=== PATIENT | female | born 1960 | race Caucasian/White ===

== ENCOUNTER → 2016-10-05 | Outpatient (CLI) | payer OTHER ==
--- NOTE | 2016-10-06 01:42 | REP ---
Clinical: Lower back pain. Technique: AP, lateral, bilateral oblique and coned-down views of the lumbosacral spine. Findings: Mild to moderate degenerative changes at the L4-5 and L5-S1 levels including endplate sclerosis with subtle anterior spurring and associated disc space narrowing. Remainder examination appears relatively normal for age. Alignment and lordosis maintained. No acute fracture / compression injury or subluxation. No obvious spondylolysis or spondylolisthesis. Impression: Mild to moderate degenerative changes primarily involving the L4-5 and L5-S1 levels. Signed by José Luis Chappell MD 10/06/2016 01:34 A
--- NOTE | 2016-10-06 01:47 | REP ---
Clinical: Knee pain. Technique: AP, lateral, bilateral oblique and sunrise views to the left knee. Findings: Mild tricompartmental degenerative changes include increased sclerosis to the tibial plateau with medial joint space narrowing as well as subtle spurring. Lateral and sunrise views of the patella demonstrate inferior osteophyte formation with subchondral heterogeneity and patellofemoral joint space narrowing. There is no evidence for acute fracture / dislocation or effusion. Unfused tibial tuberosity should not be confused with fracture. Impression: Mild tricompartmental osteoarthritic degenerative changes. Signed by José Luis Chappell MD 10/06/2016 01:38 A
== END ==
LOC: M WUC 16:13
PROVIDERS: ATTEND Physician Assistant
DX: M54.5 Low back pain (principal); M25.562 Pain in left knee

== ENCOUNTER → 2021-07-04 | Outpatient (REF) | payer BC ==
[~2021-07-04] MED LIST: CIPR500T39; CLIN150C17 PO
== END ==
LOC: M LAB REF 18:19
PROVIDERS: ATTEND Physician Assistant
DX: S91.332A Puncture wound without foreign body, left foot, initial encounter (principal)

== ENCOUNTER → 2021-07-05 | Outpatient (CLI) | payer BC ==
--- NOTE | 2021-07-05 15:15 | REP ---
INDICATION: PUNCTURE WOUND W/O FOREIGN BODY, CELLULITIS. COMPARISON: None. TECHNIQUE: Four views FINDINGS: The joint spaces are symmetric and relatively well maintained. There is no evidence of acute fracture or destructive osseous lesion. There is no evidence of a radiopaque foreign body. IMPRESSION: Within normal limits. No evidence of an acute osseous abnormality or radiopaque foreign body. <Electronically signed by Tyson Brewster > 07/05/21 1995
== END ==
LOC: M WUC 13:55
PROVIDERS: ATTEND Physician Assistant
DX: S91.332A Puncture wound without foreign body, left foot, initial encounter (principal); X58.XXXA Exposure to other specified factors, initial encounter; Y92.89 Other specified places as the place of occurrence of the external cause; Y93.89 Activity, other specified; Y99.8 Other external cause status; L03.116 Cellulitis of left lower limb

== ENCOUNTER 2021-07-06 08:44 | Emergency (ER) | payer BC ==
[~2021-07-06] VITALS: Ht 160 cm; Wt 89.9 kg
[2021-07-06] MEDS ORDERED: CIPR500T39 (08:57)
--- OUTSIDE RECORDS SUMMARY | 2021-07-06 08:57 | CCD | Continuity of Care Document ---
Author Author Lynn RAPP CA Organization Unknown Address [address] [place] [address] [place] [address] Phone [phone] Care Team Providers Care Manual Training Teacher Name Role Phone No PCP AUTM Unavailable Problems Description No Information Available Social History Type Date Description Comments Sex Unknown Tobacco Use Start: Unknown Never Smoked Cigarettes ETOH Use Rarely consumes alcohol Tobacco Use Start: Unknown Patient has never smoked Smoking Status Reviewed: 07/03/21 Patient has never smoked Allergies and adverse reactions Description No Known Drug Allergies Medications Active Medications SIG Qnty Indications Ordering Provide r Date Cipro 500mg Tablets 1 tab by mouth every 12 hours for 7 days 14tabs Wayne Cavanaugh JR., M.D. 07/03/2021 History Medications No Active Medications Unknown - 07/03/2021 Cephalexin 500mg Tablets 1 tab by mouth q6 hours for 7 days 28tabs L03.116 Wayne Cavanaugh JR., M.D. - 07/03/2021 Immunizations CPT Code Status Date Vaccine Reaction Lot # [id number] Given 03/19/2020 Tdap/Tetanus, Di phth Toxoids/Acellular Pertussis Vac 7Yr Or > Pt tolerated well, no reaction. [id number] 07476 Given 04/08/2019 PPD- TB Intradermal Test 0 m m in duration test is NEG, read by Jay GALVEZ [id number] 27685 Given 04/26/2018 PPD- TB Intradermal Test Res ults of PPD read on 04/29/2018 at 11:54AM. Results read as NEGITIVE, 0mm of induration. LEONOR Taylor [id number] 88848 Given 01/17/2017 PPD- TB Intradermal Test 64003 Given 01/17/2017 PPD- TB Intradermal Test 01/09 09/27 PPD negative Ana Aguero [facility] [id number] 64967 Given 02/27/2016 PPD- TB Intradermal Test 02/10 PPD negative. 0mm. Enrrique Rosenbergome RPA-C [id number] Vital Signs Date Vital Result Comment 07/03/2021 1:21pm BP Systolic 156 mmHg BP Diastolic 90 mmHg Heart Rate 82 /min Respiratory Rate 18 /min O2 % BldC Oximetry 98 % Body Temperature 99.4 F Weight 180.00 lb Height 63 inches 5'3" BMI (Body Mass Index) 31.9 kg/m2 Pain Level 5 05/24/2020 3:41pm BP Systolic 135 mmHg BP Diastolic 86 mmHg Heart Rate 94 /min Respiratory Rate 19 /min O2 % BldC Oximetry 96 % Body Temperature 98.1 F Weight 180.00 lb Height 63 inches 5'3" BMI (Body Mass Index) 31.9 kg/m2 Pain Level 5 Results Description No Information Available Procedures Date Code Description Status 07/03/2021 31745 Office/Outpatient Established Lo w MDM 20-29 Min Completed Medical Devices Description No Information Available Encounters Type Date Location Provider Dx Diagnosis Office Visit 07/03/2021 1:00p Main Office LEONOR Mcguire L03.11 6 Cellulitis of left lower limb S91.332A Puncture wound without forei gn body, left foot, init encntr Assessments Date Code Description Provider 07/03/2021 L03.116 Cellulitis of left lower limb Re LEONOR Cardoso 07/03/2021 S91.332A Puncture wound witho ut foreign body, left foot, initial encounter LEONOR Mcguire Plan of Treatment No Information Available Functional Status Description No Information Available Mental Status Description No Information Available Referrals Description No Information Available
--- OUTSIDE RECORDS SUMMARY | 2021-07-06 08:57 | CCD | Continuity of Care Document ---
Author Author Lynn RAPP Organization Unknown Address [address] [place] [address] [place] [address] Phone [phone] Care Team Providers Care Business Systems Analyst Name Role Phone No PCP AUTM Unavailable [...] days 14tabs Wayne Cavanaugh JR., M.D. 07/03/2021 Tylenol 8 Hour last dose 930am today Unknown History Medications No Active Medications Unknown - 07/03/2021 Cephalexin 500mg Tablets 1 tab by mouth q6 hours for 7 days 28tabs L03.116 Wayne Cavanaugh JR., M.D. - 07/03/2021 Medications Administered in Office Medication SIG Qnty Indications Ordering Provider Date Rocephin/Ceftriaxone Sodium Injection Pe r 250 MG Injection LEONOR Mcguire 06/12 Immunizations CPT Code Status Date Vaccine Reaction Lot # [id number] Given 03/19/2020 Tdap/Tetanus, Di phth Toxoids/Acellular Pertussis Vac 7Yr Or > Pt tolerated well, no reaction. [id number] 77789 Given 04/08/2019 PPD- TB Intradermal Test 0 m m in duration test is NEG, read by Jay GALVEZ [id number] 44221 Given 04/26/2018 PPD- TB Intradermal Test Res ults of PPD read on 04/29/2018 at 11:54AM. Results read as NEGITIVE, 0mm of induration. LEONOR Taylor [id number] 29140 Given 01/17/2017 PPD- TB Intradermal Test 23168 Given 01/17/2017 PPD- TB Intradermal Test 01/09 09/27 PPD negative Ana Aguero [facility] [id number] 22458 Given 02/27/2016 PPD- TB Intradermal Test 02/10 PPD negative. 0mm. Enrrique Aguero RPA-C [id number] Vital Signs Date Vital Result Comment 07/04/2021 1:25pm BP Systolic 122 mmHg BP Diastolic 92 mmHg Heart Rate 91 /min Respiratory Rate 18 /min O2 % BldC Oximetry 99 % Body Temperature 97.6 F Weight 180.00 lb Height 63 inches 5'3" BMI (Body Mass Index) 31.9 kg/m2 Pain Level 5 07/03/2021 1:21pm BP Systolic 156 mmHg BP Diastolic 90 mmHg Heart Rate 82 /min Respiratory Rate 18 /min O2 % BldC Oximetry 98 % Body Temperature 99.4 F Weight 180.00 lb Height 63 inches 5'3" BMI (Body Mass Index) 31.9 kg/m2 Pain Level 5 Results Test Acquired Date Facility Test Result H/L Range Note Laboratory test finding 07/04/2021 [place] [id number] [phone] Gram [address] (SEE NOTE) Normal 1 1 NO CELLS SEEN NO ORGANISMS SEEN Procedures Date Code Description Status 07/04/2021 56650 Office/Outpatient Established Lo w MDM 20-29 Min Completed 07/04/2021 52352 Therapeutic, Prophylactic Or Jessica gnostic Injection Subq/Im Completed 07/03/2021 48565 Office/Outpatient Established Lo w MDM 20-29 Min Completed Medical Devices Description No Information Available Encounters Type Date Location Provider Dx Diagnosis Office Visit 07/04/2021 1:15p Main Office LEONOR Mcguire L03.11 6 Cellulitis of left lower limb S91.332A Puncture wound without forei gn body, left foot, init encntr Office Visit 07/03/2021 1:00p Main Office LEONOR Mcguire L03.11 6 Cellulitis of left lower limb S91.332A Puncture wound without forei gn body, left foot, init encntr Assessments Date Code Description Provider 07/04/2021 L03.116 Cellulitis of left lower limb LEONOR Stacy 07/04/2021 S91.332A Puncture wound witho ut foreign body, left foot, initial encounter LEONOR Mcguire 07/03/2021 L03.116 Cellulitis of left lower limb LEONOR Stacy 07/03/2021 S91.332A Puncture wound witho ut foreign body, left foot, initial encounter LEONOR Mcguire Plan of Treatment 07/04/2021 - LEONOR Mcguire* L03.116 Cellulitis of left lower limb* Comments:* Patient was given Rocephin 1g IM in office. Tolerated well without immediate reaction. Patient should continue to elevate extremity and rest.Will continue with ciprofloxacin. Patient to return tomorrow (07/05/21) for recheck. * S91.332A Puncture wound without foreign body, left foot, initial encounter* Comments:* Small amount of purulent d/c noted at wound opening- will Send wound culture.Plan as discussed above. Functional Status Description No Information Available Mental Status Description No Information Available Referrals Description No Information Available
--- OUTSIDE RECORDS SUMMARY | 2021-07-06 08:57 | CCD | Continuity of Care Document ---
Author Author Lynn RAPP Organization Unknown Address [address] [place] [address] [place] [address] Phone [phone] Care Team Providers Care Assemblies And Installations Inspector Name Role Phone No PCP AUTM Unavailable Problems Description No Information Available Social History Type Date Description Comments Sex Unknown Tobacco Use Start: Unknown Never Smoked Cigarettes ETOH Use Rarely consumes alcohol Tobacco Use Start: Unknown Patient has never smoked Smoking Status Reviewed: 07/05/21 Patient has never smoked Allergies and adverse [...] Sodium Injection Pe r 250 MG Injection Barbara LEONOR Curtis 06/12 Rocephin/Ceftriaxone Sodium Injection Pe r 250 MG Injection LEONOR Mcguire 06/12 Immunizations CPT Code Status Date Vaccine Reaction Lot # [id number] Given 03/19/2020 Tdap/Tetanus, Di phth Toxoids/Acellular Pertussis Vac 7Yr Or > Pt tolerated well, no reaction. [id number] 60427 Given 04/08/2019 PPD- TB Intradermal Test 0 m m in duration test is NEG, read by Jay GALVEZ [id number] 40306 Given 04/26/2018 PPD- TB Intradermal Test Res ults of PPD read on 04/29/2018 at 11:54AM. Results read as NEGITIVE, 0mm of induration. LEONOR Taylor [id number] 61098 Given 01/17/2017 PPD- TB Intradermal Test 22429 Given 01/17/2017 PPD- TB Intradermal Test 01/09 09/27 PPD negative Ana Rosenbergome [facility] [id number] 71592 Given 02/27/2016 PPD- TB Intradermal Test 02/10 PPD negative. 0mm. Enrrique Aguero RPA-C [id number] Vital Signs Date Vital Result Comment 07/05/2021 1:29pm BP Systolic 117 mmHg BP Diastolic 79 mmHg Heart Rate 84 /min Respiratory Rate 12 /min O2 % BldC Oximetry 100 % Body Temperature 98.0 F Weight 185.00 lb Height 63 inches 5'3" BMI (Body Mass Index) 32.8 kg/m2 Pain Level 6 07/04/2021 1:25pm BP Systolic 122 mmHg BP Diastolic 92 mmHg Heart Rate 91 /min Respiratory Rate 18 /min O2 % BldC Oximetry 99 % Body Temperature 97.6 F Weight 180.00 lb Height 63 inches 5'3" BMI (Body Mass Index) 31.9 kg/m2 Pain Level 5 Results Test Acquired Date Facility Test Result H/L Range Note Laboratory test finding 07/04/[address] [address] [phone] (SEE NOTE) Normal 1 1 NO CELLS SEEN NO ORGANISMS SEEN Procedures Date Code Description Status 07/05/2021 66449 Office/Outpatient Established Lo w MDM 20-29 Min Completed 07/05/2021 67204 Therapeutic, Prophylactic Or Jessica gnostic Injection Subq/Im Completed 07/04/2021 87789 Office/Outpatient Established Lo w MDM 20-29 Min Completed 07/04/2021 66012 Therapeutic, Prophylactic Or Jessica gnostic Injection Subq/Im Completed 07/03/2021 36304 Office/Outpatient Established Lo w MDM 20-29 Min Completed Medical Devices Description No Information Available Encounters Type Date Location Provider Dx Diagnosis Office Visit 07/05/2021 12:55p Main Office LEONOR Mcguire L03.11 6 Cellulitis of left lower limb S91.332A Puncture wound without forei gn body, left foot, init encntr Office Visit 07/04/2021 1:15p Main Office LEONOR Mcguire L03.11 6 Cellulitis of left lower limb S91.332A Puncture wound without forei gn body, left foot, init encntr Office Visit 07/03/2021 1:00p Main Office LEONOR Mcguire L03.11 6 Cellulitis of left lower limb S91.332A Puncture wound without forei gn body, left foot, init encntr Assessments Date Code Description Provider 07/05/2021 L03.116 Cellulitis of left lower limb Re LEONOR Cardoso 07/05/2021 S91.332A Puncture wound witho ut foreign body, left foot, initial encounter LEONOR Mcguire 07/04/2021 L03.116 Cellulitis of left lower limb [...]
--- OUTSIDE RECORDS SUMMARY | 2021-07-06 08:57 | CCD | Continuity of Care Document ---
Author Author Lynn RAPP Organization Unknown Address [address] [place] [address] [place] [address] Phone [phone] Care Team Providers Care Buffing Wheel Operator Name Role Phone No PCP AUTM Unavailable [...] Code Status Date Vaccine Reaction Lot # [id number] Given 03/19/2020 Tdap/Tetanus, Di phth Toxoids/Acellular Pertussis Vac 7Yr Or > Pt tolerated well, no reaction. [id number] 37252 Given 04/08/2019 PPD- TB Intradermal Test 0 m m in duration test is NEG, read by Jay GALVEZ [id number] 52419 Given 04/26/2018 PPD- TB Intradermal Test Res ults of PPD read on 04/29/2018 at 11:54AM. Results read as NEGITIVE, 0mm of induration. LEONOR Taylor [id number] 56337 Given 01/17/2017 PPD- TB Intradermal Test 32923 Given 01/17/2017 PPD- TB Intradermal Test 01/09 09/27 PPD negative Ana Rosenbergome [facility] [id number] 67761 Given 02/27/2016 PPD- TB Intradermal Test 02/10 PPD negative. 0mm. Enrrique Aguero RPA-C [id number] Vital Signs Date Vital Result Comment 07/05/2021 [...] H/L Range Note Laboratory test finding 07/04/2021 [place] [address] [phone] (SEE NOTE) Normal 1 1 NO CELLS SEEN NO ORGANISMS SEEN Procedures Date Code Description Status 07/04/2021 47447 Office/Outpatient Established w [facility] 20-29 Min Completed 07/04/2021 08325 Therapeutic, Prophylactic Or Jessica gnostic Injection Subq/Im Completed 07/03/2021 47506 Office/Outpatient Established w [facility] 20-29 Min Completed Medical Devices Description No [...]
--- OUTSIDE RECORDS SUMMARY | 2021-07-06 08:57 | CCD | Continuity of Care Document ---
Author Author Lynn RAPP Organization Unknown Address [address] [place] [address] [place] [address] Phone [phone] Care Team Providers Care Miller Helper Name Role Phone No PCP AUTM Unavailable [...] Code Status Date Vaccine Reaction Lot # [id number] Given 03/19/2020 Tdap/Tetanus, Di phth Toxoids/Acellular Pertussis Vac 7Yr Or > Pt tolerated well, no reaction. [id number] 24108 Given 04/08/2019 PPD- TB Intradermal Test 0 m m in duration test is NEG, read by Jay GALVEZ [id number] 21429 Given 04/26/2018 PPD- TB Intradermal Test Res ults of PPD read on 04/29/2018 at 11:54AM. Results read as NEGITIVE, 0mm of induration. LEONOR Taylor [id number] 19358 Given 01/17/2017 PPD- TB Intradermal Test 79164 Given 01/17/2017 PPD- TB Intradermal Test 01/09 09/27 PPD negative Ana Aguero [facility] [id number] 62086 Given 02/27/2016 PPD- TB Intradermal Test 02/10 PPD negative. 0mm. Enrrique Aguero RPA-C [id number] Vital Signs Date Vital Result Comment 07/04/2021 [...] Available Procedures Date Code Description Status 07/03/2021 16137 Office/Outpatient Established Lo w MDM 20-29 Min [...]
--- OUTSIDE RECORDS SUMMARY | 2021-07-06 08:57 | CCD ---
Author Author [facility] Organization [facility] Address Unknown Phone Unavailable Care Team Providers Care Financial Aid Coordinator Name Role Phone RING, K TAMI PA Unavailable Unavailable RING, K TAMI PA Unavailable Unavailable RING, K TAIM PA Unavailable Unavailable RING, K TAMI PA Unavailable Unavailable RING, K TAMI PA Unavailable Unavailable RING, K TAMI PA Unavailable Unavailable RING, K TAMI PA Unavailable Unavailable RING, K TAMI PA Unavailable Unavailable RING, K TAMI PA Unavailable Unavailable RING, K TAMI PA Unavailable Unavailable RING, K TAMI PA Unavailable Unavailable RING, K TAMI PA Unavailable Unavailable RING, K TAMI PA Unavailable Unavailable RING, K TAMI PA Unavailable Unavailable RING, K TAMI PA Unavailable Unavailable RING, K TAMI PA Unavailable Unavailable RING, K TAMI PA Unavailable Unavailable RING, K TAMI PA Unavailable Unavailable RING, K TAMI PA Unavailable Unavailable RING, K TAMI PA Unavailable Unavailable RING, K TAMI PA Unavailable Unavailable Re-disclosure Warning The records that you are about to access may contain information from federally-assisted alcohol or drug abuse programs. If such information is present, then the following federally mandated warning applies: This information has been disclosed to you from records protected by federal confidentiality rules (42 CFR part 2). The federal rules prohibit you from making any further disclosure of this information unless further disclosure is expressly permitted by the written consent of the person to whom it pertains or as otherwise permitted by 42 CFR part 2. A general authorization for the release of medical or other information is NOT sufficient for this purpose. The Federal rules restrict any use of the information to criminally investigate or prosecute any alcohol or drug abuse patient.The records that you are about to access may contain highly sensitive health information, the redisclosure of which is protected by Article 27-F of the [facility] Public Health law. If you continue you may have access to information: Regarding HIV / AIDS; Provided by facilities licensed or operated by the [facility] Office of Mental Health; or Provided by the [facility] Office for People With Developmental Disabilities. If such information is present, then the following [facility] mandated warning applies: This information has been disclosed to you from confidential records which are protected by state law. State law prohibits you from making any further disclosure of this information without the specific written consent of the person to whom it pertains, or as otherwise permitted by law. Any unauthorized further disclosure in violation of state law may result in a fine or chcf sentence or both. A general authorization for the release of medical or other information is NOT sufficient authorization for further disc losure. Family History Family Member Name Family Member Gender Family Member Status Date o f Status Description Data Source(s) Unknown Female Problem [facility] ([facility]) Encounters Encounter Providers Location Date Indications Data Source(s ) Outpatient Attender: TAMI Vergara Primary 07/04/2021 01:15:00 PM EDT [facility] ([facility]) Outpatient Attender: TAMI Vergara Primary 07/03/2021 01:00:00 PM EDT [facility] ([facility]) Outpatient Attender: TAMI Vergara Primary 05/24/2020 03:30:00 PM EDT [facility] ([facility]) Immunizations Vaccine Date Status Description Data Source(s) COVID-19 VACC, MRNA(PFIZER)/PF 04/27/2021 12:00:00 AM EDT completed [facility] COVID-19 VACCINE Pfizer 04/27/2021 12:00:00 AM EDT completed [facility] Vaccine Series Complete: YESThis Data wa s Submitted to [facility] [employer]. COVID-19 VACCINE Pfizer 04/06/2021 12:00:00 AM EDT completed [facility] Vaccine Series Complete: NOThis Data was Submitted to [facility] [employer]. COVID-19 VACC, MRNA(PFIZER)/PF 04/06/2021 12:00:00 AM EDT completed [facility] Medications Medication Brand Name Start Date Product Form Dose Route Admi nistrative Instructions Pharmacy Instructions Status Indications Reaction Description Data Source(s) Rocephin/Ceftriaxone Sodium Injection Per 250 MG 07/05 12:00:00 AM EDT completed [facility] ([facility]) Medication administered onsite Rocephin/Ceftriaxone Sodium Injection Per 250 MG 07/04 12:00:00 AM EDT completed [facility] ([facility]) Medication administered onsite Cephalexin 500 MG Oral Tablet Cephalexin 07/03/2021 12:00:00 AM EDT ORAL completed [facility] ([facility]) 500 mg 07/03/2021 12:00:00 AM EDT tablet 14 TAKE 1 TABLET BY MOUTH EVERY 12 HOURS FOR 7 DAYS TAKE 1 TABLET BY MOUTH EVERY 12 HOURS FOR 7 DAYS SOLD: 07/03/2021 [facility] Ciprofloxacin 500 MG Oral Tablet [Cipro] Cipro 07/03/2021 12:00: 00 AM EDT ORAL active [facility] ([facility]) No Active Medications 07/03/2021 12:00:00 AM EDT completed [facility] ([facility]) 2 % 05/24/2020 12:00:00 AM EDT ointment 22 APPLY TO SKIN AT AFFECTED AREA AROUND MOUTH AND FACE EVERY 8 HOURS UNTIL RESOLUTION APPLY TO SKIN AT AFFECTED AREA AROUND MOUTH AND FACE EVERY 8 HOURS UNTIL RESOLUTION SOLD: 05/25/2020 [facility] valacyclovir 1000 MG Oral Tablet Valacyclovir HCL 05/24/2020 12:00: 00 AM EDT ORAL active [facility] ([facility]) Cephalexin 500 MG Oral Tablet Cephalexin 05/24/2020 12:00:00 AM EDT ORAL active [facility] ([facility]) Mupirocin 0.02 MG/MG Topical Ointment Mupirocin 05/24/2020 12:00:00 AM EDT active [facility] ([facility]) valacyclovir 1000 MG Oral Tablet VALACYCLOVIR HCL 05/24/2020 12: 00:00 AM EDT tablet 21 TAKE ONE TABLET BY MOUTH EVERY 8 HOURS FOR 7 DAYS TAKE ONE TABLET BY MOUTH EVERY 8 HOURS FOR 7 DAYS SOLD: 05/25/2020 [facility] Cephalexin 500 MG Oral Capsule CEPHALEXIN 05/24/2020 12:00:00 AM EDT capsule 14 TAKE ONE CAPSULE BY MOUTH EVERY 12 HOURS FOR 7 DAYS TA KE ONE CAPSULE BY MOUTH EVERY 12 HOURS FOR 7 DAYS SOLD: 05/25/2020 [facility] No Active Medications 03/29/2020 12:00:00 AM EDT completed [facility] ([facility]) Insurance Providers Payer name Policy type / Coverage type Policy ID Covered libertarian ID Covered libertarian's relationship to butt Policy Butt Plan Information [employer] [id number] Self [employer] EM[employer]OYEE PROGRAM [id number] SP [id number] [employer] WORKER COMP [id number] SP [id number] [employer] DENNIS RISK O [id number] S [id number] [employer] DEN[employer]IS RISK MANAGEMEN [id number]. SP [id number]. [facility] Health Maintenance Organization (HMO) [id number] Self BCBS [facility] [id number] SP [id number] [facility] [id number] SP [id number] Problems, Conditions, and Diagnoses No Information Surgeries/Procedures Procedure Description Date Indications Data Source(s) Therapeutic, Prophylactic Or Diagnostic Injection Subq/Im 07/04/2021 12:00:00 AM EDT [facility] ([facility]) OFFICE OUTPATIENT VISIT 15 MINUTES 07/04/2021 12:00:00 AM EDT MED[facility] ([facility], [facility]) OFFICE OUTPATIENT VISIT 15 MINUTES 07/03/2021 12:00:00 AM EDT [facility] ([facility]) Results ID Date Data Source [id number] 07/04/2021 02:21:00 PM EDT [facility] ([facility]) Name Value Range Interpretation Code Description Data Mandy rce(s) Supporting Document(s) Bacteria identified in Wound by Culture Laboratory test result [facility] ([facility]) NO CELLS SEEN NO ORGANISMS SEEN Procedure Social History Code Duration Value Status Description Data Source(s ) Smoking 07/05/2021 12:00:00 AM EDT Patient has never smoked co mpleted Patient has never smoked [facility] ([facility], [facility]) Vital Signs ID Date Data Source UNK Name Value Range Interpretation Code Description Data Source(s) Systolic blood pressure 117 mm[Hg] 117 mm[Hg] [facility], [facility]) Diastolic blood pressure 79 mm[Hg] 79 mm[Hg] [facility], [facility]) Heart rate 84 /min 84 /min [facility] ([facility], [facility]) Respiratory rate 12 /min 12 /min [facility] ( [facility], [facility]) Oxygen saturation in Arterial blood by Pulse oximetry 100 % 100 % [facility] ([facility], [facility]) Body temperature 98.0 [degF] 98.0 [degF] [facility] ([facility], [facility]) Body weight 185.00 [lb_av] 185.00 [lb_av] MEDEN T ([facility], [facility]) Body height 63 [in_i] 63 [in_i] [facility] ([facility]) 5'3" Body mass index (BMI) [Ratio] 32.8 kg/m2 32.8 k g/m2 [facility] ([facility]) Systolic blood pressure 122 mm[Hg] 122 mm[Hg] [facility] Diastolic blood pressure 92 mm[Hg] 92 mm[Hg] [facility] ([facility], [facility]) Heart rate 91 /min 91 /min [facility] ([facility], [facility]) Respiratory rate 18 /min 18 /min [facility] ( [facility], [facility]) Oxygen saturation in Arterial blood by Pulse oximetry 99 % 99 % [facility] ([facility], [facility]) Body temperature 97.6 [degF] 97.6 [degF] [facility] Body weight 180.00 [lb_av] 180.00 [lb_av] MED[facility] T ([facility], [facility]) Body height 63 [in_i] 63 [in_i] [facility] ([facility], [facility]) 5'3" Body mass index (BMI) [Ratio] 31.9 kg/m2 31.9 k g/m2 [facility] ([facility], [facility]) Systolic blood pressure 156 mm[Hg] 156 mm[Hg] M EDENT ([facility], [facility]) Heart rate 82 /min 82 /min [facility] ([facility], [facility]) Respiratory rate 18 /min 18 /min [facility] ( [facility], [facility]) Oxygen saturation in Arterial blood by Pulse oximetry 98 % 98 % [facility] ([facility], [facility]) Body height 63 [in_i] 63 [in_i] [facility] ([facility], [facility]) 5'3" Diastolic blood pressure 90 mm[Hg] 90 mm[Hg] [facility] ([facility], [facility]) Body temperature 99.4 [degF] 99.4 [degF] [facility] ([facility], [facility]) Body weight 180.00 [lb_av] 180.00 [lb_av] MEDEN T ([facility], [facility]) Body mass index (BMI) [Ratio] 31.9 kg/m2 31.9 k g/m2 [facility] ([facility], [facility]) Systolic blood pressure 135 mm[Hg] 135 mm[Hg] M EDENT ([facility], [facility]) Diastolic blood pressure 86 mm[Hg] 86 mm[Hg] [facility] ([facility], [facility]) Heart rate 94 /min 94 /min [facility] ([facility], [facility]) Respiratory rate 19 /min 19 /min [facility] ( [facility], [facility]) Oxygen saturation in Arterial blood by Pulse oximetry 96 % 96 % [facility] ([facility], [facility]) Body temperature 98.1 [degF] 98.1 [degF] [facility] ([facility], [facility]) Body weight 180.00 [lb_av] 180.00 [lb_av] MEDEN T ([facility], [facility]) Body height 63 [in_i] 63 [in_i] [facility] ([facility], [facility]) 5'3" Body mass index (BMI) [Ratio] 31.9 kg/m2 31.9 k g/m2 [facility] ([facility], [facility])
--- OUTSIDE RECORDS SUMMARY | 2021-07-06 08:57 | CCD ---
Continuity of Care Document (CCD) Created on: 07/03/2021 Lynn Steiner External Reference #: [id number] : [id number] Sex: Female Author Author Lynn [facility] [place] Organization Unknown Address [address] [place] [address] [place] [address] Phone [phone] Care Team Providers Care Purchasing Manager Name Role Phone No PCP [facility] Unavailable [...] Code Status Date Vaccine Reaction Lot # [id number] Given 03/19/2020 Tdap/Tetanus, Di phth Toxoids/Acellular Pertussis Vac 7Yr Or > Pt tolerated well, no reaction. [id number] Given 04/08/2019 PPD- TB Intradermal Test 0 m m in duration test is NEG, read by Jay GALVEZ [id number] Given 04/26/2018 PPD- TB Intradermal Test Res ults of PPD read on 04/29/2018 at 11:54AM. Results read as NEGITIVE, 0mm of induration. LEONOR Taylor [id number] 94308 Given 01/17/2017 PPD- TB Intradermal Test [id number] Given 01/17/2017 PPD- TB Intradermal Test 01/09 09/27 PPD negative Ana Aguero [facility] [id number] [id number] Given 02/27/2016 PPD- TB Intradermal Test 02/10 PPD negative. 0mm. Enrrique Rosenbergome RPA-C [id number] Vital Signs Date Vital Result Comment 07/03/2021 [...] Available Procedures Date Code Description Status 07/03/2021 87332 Office/Outpatient Established Lo w MDM 20-29 Min [...]
--- OUTSIDE RECORDS SUMMARY | 2021-07-06 08:57 | CCD | Continuity of Care Document ---
Author Author Lynn RAPP Organization Unknown Address [address] [place] [address] [place] [address] Phone [phone] Care Team Providers Care Pluck Separator Name Role Phone No PCP [facility] Unavailable [...] Code Status Date Vaccine Reaction Lot # [id number] Given 03/19/2020 Tdap/Tetanus, Di phth Toxoids/Acellular Pertussis Vac 7Yr Or > Pt tolerated well, no reaction. [id number] 74348 Given 04/08/2019 PPD- TB Intradermal Test 0 m m in duration test is NEG, read by Jay GALVEZ [id number] Given 04/26/2018 PPD- TB Intradermal Test Res ults of PPD read on 04/29/2018 at 11:54AM. Results read as NEGITIVE, 0mm of induration. LEONOR Taylor [id number] 48917 Given 01/17/2017 PPD- TB Intradermal Test [id number] Given 01/17/2017 PPD- TB Intradermal Test 01/09 09/27 PPD negative Ana Aguero [facility] [id number] 11188 Given 02/27/2016 PPD- TB Intradermal Test 02/10 PPD negative. 0mm. Enrrique Aguero RPA-C [id number] Vital Signs Date Vital Result Comment 07/04/2021 [...] H/L Range Note Laboratory test finding 07/04/2021 [place] [id number] [phone] Culture Wound And Gram Stain <pending> Procedures Date Code Description Status 07/04/2021 75376 Office/Outpatient Established Lo w MDM 20-29 Min Completed 07/04/2021 47062 Therapeutic, Prophylactic Or Jessica gnostic Injection Subq/Im Completed 07/03/2021 83640 Office/Outpatient Established Lo w MDM 20-29 Min [...] 07/04/2021 L03.116 Cellulitis of left lower limb Re LEONOR Cardoso 07/04/2021 S91.332A Puncture wound witho ut foreign [...]
[2021-07-06] MEDS ORDERED: CLIN150C17 PO (09:46)
[2021-07-06 09:59] VITALS: BP 135/66
--- OUTSIDE RECORDS SUMMARY | 2021-07-06 10:07 | CCD ---
Author Author [facility] Organization [facility] Address Unknown Phone Unavailable Care Team Providers Care Hand Tool Lapper Name Role Phone RING, K TAMI PA [...] is protected by Article 27-F of the [place] Public Health law. If you continue you may have access to information: Regarding HIV / AIDS; Provided by facilities licensed or operated by the [facility] Office of Mental Health; or Provided by the [facility] Office for People With Developmental Disabilities. If such information is present, then the following [facility] mandated warning applies: This information has been [...] law may result in a fine or long-term sentence or both. A general authorization for the release of medical or other information is NOT sufficient authorization for further disc losure. Family History Family Member Name Family Member Gender Family Member Status Date o f Status Description Data Source(s) Unknown Female Problem [facility] ([facility]) Encounters Encounter Providers Location Date Indications Data Source(s ) Outpatient Attender: TAMI Vergara Primary 07/05/2021 12:55:00 PM EDT [facility] ([facility] Outpatient Attender: TAMI Vergara Primary 07/04/2021 01:15:00 PM EDT [facility] ([facility]) Outpatient Attender: TAMI Vergara Primary 07/03/2021 01:00:00 PM EDT [facility] ([facility]) Outpatient Attender: TAMI Vergara Primary 05/24/2020 03:30:00 PM EDT [facility] ([facility]) Immunizations Vaccine Date Status Description Data Source(s) COVID-19 VACC, MRNA(PFIZER)/PF 04/27/2021 12:00:00 AM EDT completed [facility] COVID-19 VACCINE Pfizer 04/27/2021 12:00:00 AM EDT completed [facility] Vaccine Series Complete: YESThis Data wa s Submitted to [facility]. COVID-19 VACCINE Pfizer 04/06/2021 12:00:00 AM EDT completed [facility] Vaccine Series Complete: NOThis Data was Submitted to [facility]. COVID-19 VACC, MRNA(PFIZER)/PF 04/06/2021 12:00:00 AM EDT completed [facility] Medications Medication Brand Name Start Date Product Form Dose Route Admi nistrative Instructions Pharmacy Instructions Status Indications Reaction Description Data Source(s) Rocephin/Ceftriaxone Sodium Injection Per 250 MG 07/05 12:00:00 AM EDT completed [facility] ([facility]) Medication administered onsite Rocephin/Ceftriaxone Sodium Injection Per 250 MG 07/04 12:00:00 AM EDT completed [facility] ([facility]) Medication administered onsite Cephalexin 500 MG Oral Tablet Cephalexin 07/03/2021 12:00:00 AM EDT ORAL completed [facility] ([facility]) 500 mg 07/03/2021 12:00:00 AM EDT tablet 14 TAKE 1 TABLET BY MOUTH EVERY 12 HOURS FOR 7 DAYS TAKE 1 TABLET BY MOUTH EVERY 12 HOURS FOR 7 DAYS SOLD: 07/03/2021 [facility] Ciprofloxacin 500 MG Oral Tablet [Cipro] Cipro 07/03/2021 12:00: 00 AM EDT ORAL active [facility] ([facility]) No Active Medications 07/03/2021 12:00:00 AM EDT completed [facility] ([facility]) 2 % 05/24/2020 12:00:00 AM EDT ointment 22 APPLY TO SKIN AT AFFECTED AREA AROUND MOUTH AND FACE EVERY 8 HOURS UNTIL RESOLUTION APPLY TO SKIN AT AFFECTED AREA AROUND MOUTH AND FACE EVERY 8 HOURS UNTIL RESOLUTION SOLD: 05/25/2020 [facility] valacyclovir 1000 MG Oral Tablet Valacyclovir HCL 05/24/2020 12:00: 00 AM EDT ORAL active [facility] ([facility]) Cephalexin 500 MG Oral Tablet Cephalexin 05/24/2020 12:00:00 AM EDT ORAL active [facility] ([facility]) Mupirocin 0.02 MG/MG Topical Ointment Mupirocin 05/24/2020 12:00:00 AM EDT active [facility] ([facility]) valacyclovir 1000 MG Oral Tablet VALACYCLOVIR HCL [...] Medications 03/29/2020 12:00:00 AM EDT completed [facility] ([facility]) Insurance Providers Payer name Policy type / Coverage type Policy ID Covered democrat ID Covered democrat's relationship to butt Policy Butt Plan Information [employer] [id number] Self [employer] [id number] SP [id number] [employer] WORKER COMP [id number] SP [id number] [employer] RISK O [id number] S [id number] [employer] RISK MANAGEMEN [id number]. SP [id number]. [facility] Health Maintenance Organization (HMO) [id number] Self BCBS [facility] [id number] SP [id number] [facility] [id number] SP [id number] Problems, Conditions, and Diagnoses No Information Surgeries/Procedures Procedure Description Date Indications Data Source(s) Therapeutic, Prophylactic Or Diagnostic Injection Subq/Im 07/05/2021 12:00:00 AM EDT [facility] ([facility]) OFFICE OUTPATIENT VISIT 15 MINUTES 07/05/2021 12:00:00 AM EDT [facility] ([facility]) Therapeutic, Prophylactic Or Diagnostic Injection Subq/Im 07/04/2021 12:00:00 AM EDT [facility] ([facility]) OFFICE OUTPATIENT VISIT 15 MINUTES 07/04/2021 12:00:00 AM EDT [facility] ([facility], [facility]) OFFICE OUTPATIENT VISIT 15 MINUTES 07/03/2021 12:00:[address] [facility] ([facility], [facility]) Results ID Date Data Source [id number] 07/04/2021 02:21:[address] [facility] ([facility], [facility]) Name Value Range Interpretation Code Description Data Mandy rce(s) Supporting Document(s) Bacteria identified in Wound by Culture Laboratory test result [facility] ([facility], [facility]) NO CELLS SEEN NO ORGANISMS SEEN Procedure Social History Code Duration Value Status Description Data Source(s ) Smoking 07/05/2021 12:00:00 AM EDT Patient has never smoked co mpleted Patient has never smoked [facility] ([facility]) Vital Signs ID Date Data Source UNK Name Value Range Interpretation Code Description Data Source(s) Systolic blood pressure 117 mm[Hg] 117 mm[Hg] [facility], [facility]) Diastolic blood pressure 79 mm[Hg] 79 mm[Hg] [facility] ([facility], [facility]) Heart rate 84 /min 84 /min [facility] ([facility], [facility]) Respiratory rate 12 /min 12 /min [facility] ( [facility], [facility]) Oxygen saturation in Arterial blood by Pulse oximetry 100 % 100 % [facility] ([facility]) Body temperature 98.0 [degF] 98.0 [degF] [facility] ([facility]) Body weight 185.00 [lb_av] 185.00 [lb_av] [facility] ([facility], [facility]) Body height 63 [in_i] 63 [in_i] [facility] ([facility]) 5'3" Body mass index (BMI) [Ratio] 32.8 kg/m2 32.8 k g/m2 [facility] ([facility]) Systolic blood pressure 122 mm[Hg] 122 mm[Hg] M [facility] ([facility]) Diastolic blood pressure 92 mm[Hg] 92 mm[Hg] [facility] ([facility]) Heart rate 91 /min 91 /min [facility] ([facility]) Respiratory rate 18 /min 18 /min [facility] ( [facility], [facility]) Oxygen saturation in Arterial blood by Pulse oximetry 99 % 99 % [facility] ([facility], [facility]) Body temperature 97.6 [degF] 97.6 [degF] [facility] ([facility]) Body weight 180.00 [lb_av] 180.00 [lb_av] [facility] ([facility], [facility]) Body height 63 [in_i] 63 [in_i] [facility] ([facility], [facility]) 5'3" Body mass index (BMI) [Ratio] 31.9 kg/m2 31.9 k g/m2 [facility] ([facility]) Systolic blood pressure 156 mm[Hg] 156 mm[Hg] M [facility] ([facility]) Heart rate 82 /min 82 /min [facility] ([facility]) Respiratory rate 18 /min 18 /min [facility] ( [facility]) Oxygen saturation in Arterial blood by Pulse oximetry 98 % 98 % [facility] ([facility], [facility]) Body height 63 [in_i] 63 [in_i] [facility] ([facility]) 5'3" Body mass index (BMI) [Ratio] 31.9 kg/m2 31.9 k g/m2 [facility] ([facility]) Diastolic blood pressure 90 mm[Hg] 90 mm[Hg] [facility] ([facility]) Body temperature 99.4 [degF] 99.4 [degF] [facility] ([facility]) Body weight 180.00 [lb_av] 180.00 [lb_av] [facility] T ([facility]) Systolic blood pressure 135 mm[Hg] 135 mm[Hg] M [facility] ([facility]) Diastolic blood pressure 86 mm[Hg] 86 mm[Hg] [facility] ([facility]) Heart rate 94 /min 94 /min [facility] ([facility]) Respiratory rate 19 /min 19 /min [facility] ( [facility], [facility]) Oxygen saturation in Arterial blood by Pulse oximetry 96 % 96 % [facility] ([facility], [facility]) Body temperature 98.1 [degF] 98.1 [degF] [facility] ([facility], [facility]) Body weight 180.00 [lb_av] 180.00 [lb_av] [facility] ([facility], [facility]) Body height 63 [in_i] 63 [in_i] [facility] ([facility], [facility]) 5'3" Body mass index (BMI) [Ratio] 31.9 kg/m2 31.9 k g/m2 [facility] ([facility])
== END 2021-07-06 10:05 | disposition home or self-care (01) ==
LOC: M ED 08:44
DX: S91.332A Puncture wound without foreign body, left foot, initial encounter (principal); X58.XXXA Exposure to other specified factors, initial encounter; Y92.018 Other place in single-family (private) house as the place of occurrence of the external cause

== ENCOUNTER → 2022-05-08 | Outpatient (CLI) | payer BC ==
[2022-05-08 11:33] LABS: ALBUMIN 3.6 GM/DL (3.2-5.2); BLOOD UREA NITROGEN 12 MG/DL (7-18); CALCIUM LEVEL 8.9 MG/DL (8.8-10.2); CARBON DIOXIDE LEVEL 25 MEQ/L (21-32); CHLORIDE LEVEL 106 MEQ/L (98-107); CREATININE FOR GFR 0.91 MG/DL (0.55-1.30); GLOMERULAR FILTRATION RATE > 60.0 (>45); GLUCOSE, FASTING 105 MG/DL (70-100); PHOSPHORUS LEVEL 2.2 MG/DL (2.5-4.9); POTASSIUM SERUM 3.5 MEQ/L (3.5-5.1); SODIUM LEVEL 138 MEQ/L (136-145)
== END ==
LOC: M LAB 10:34
PROVIDERS: ATTEND Physician Assistant
DX: U07.1 COVID-19 (principal)

== ENCOUNTER → 2022-05-26 | Outpatient (CLI) | payer BC ==
[2022-05-29 23:06] LABS: RUBEOLA IgG ANTIBODY 13.5 AU/mL (Immune >16.4)
== END ==
LOC: M WUC 14:01
PROVIDERS: ATTEND Physician Assistant
DX: Z02.1 Encounter for pre-employment examination (principal)

== ENCOUNTER → 2024-01-29 | Outpatient (CLI) | payer BC | LOC: M WUC 12:13 | PROVIDERS: ATTEND Nurse Practitioner Adult Health | DX: M17.0 Bilateral primary osteoarthritis of knee (principal); M25.569 Pain in unspecified knee; M11.261 Other chondrocalcinosis, right knee; M11.262 Other chondrocalcinosis, left knee ==